=== PATIENT | male | born 2000 | race Caucasian/White ===

== ENCOUNTER 2021-08-24 10:14 | Outpatient (REF) | payer MEDICAID, SELFPAY ==
[2021-08-24 10:30] LABS: COVID-19 Test Positive (Negative)
== END 2021-08-24 10:15 | disposition home or self-care (01) ==
LOC: HO.LAB 10:14
PROVIDERS: Visit Provider Internal Medicine
DX: Z20.822 Contact with and (suspected) exposure to COVID-19 (principal)
CPT/HCPCS: 87635; C9803

== ENCOUNTER 2023-02-16 07:02 | Emergency (ER) | payer MEDICAID, SELFPAY ==
[2023-02-16 07:06] VITALS: BP 134/64; PULSE 97; RESP 16; TEMP 36.2; O2SAT 97; BMI 33.2
[2023-02-16 07:25] VITALS: BP 138/53; PULSE 78; RESP 18; TEMP 36.8; O2SAT 97
--- NOTE | 2023-02-16 07:28 | PC.NURSE ---
Alert and oriented. Arrived from home reporting 8 headache. States headache started yesterday when he woke up from a nap. States hx of headache but this is the worst one he has ever had. States saw a flash of bright light behind right eye yesterday and then pain continued to get worse. Denies sob or chest pain. States has some nausea and x1 vomiting. Denies sore throat, fever, or chills.
[2023-02-16] MEDS: 0.9 % Sodium Chloride 1,000 ML 999 ML IV (07:57)
--- NOTE | 2023-02-16 07:57 | ED.GENADULT ---
[facility] General Adult General Chief complaint: Headache Stated complaint: abd pain , migraine Time Seen by Provider: 02/16/23 07:24 Source: patient and other Mode of arrival: ambulatory History of Present Illness HPI narrative: 22-year-old male who presents with 2 days of headache and nausea that is related to underlying dental caries, also reports he has been drinking for the past few days, last drink was at 02:00, denies abdominal pain or sore throat. Related Data Allergies Allergy/AdvReac Type Severity Reaction Status Date / Time cashew nut [CASHEW NUT] Allergy Severe SWELLING Verified 02/16/23 07:06 pistachio nut Allergy Severe Swelling Verified 02/16/23 07:06 Review of Systems Review of Systems: Pertinent positives and negatives as stated in [facility] Past Medical History Source: nursing notes reviewed Social History Social History Alcohol intake: never Smoked in Last 30 Days: Yes Use of substances other than those prescribed or required for medical reasons: No Advance Directives: No Advance Directives Information Provided: Yes Physical Exam ED Vital Signs: Vital Signs - 24 hr 02/16/23 07:06 02/16/23 07:25 Temperature 97.1 F 98.3 F Pulse Rate 97 78 Respiratory Rate 16 18 Blood Pressure 134/64 138/53 L Pulse Oximetry 97 97 Oxygen Delivery Method Room Air BMI result Body Mass Index 33.2 VITAL SIGNS: Reviewed. GENERAL: Well developed, well nourished, in no acute distress. HEAD: Normocephalic/atraumatic EYES: PERRLA, EOMI EARS: Ext canals without abnormality, TMs non-bulging and non-erythematous NOSE: Nares patent bilateral OROPHARYNX: no oral lesions noted, posterior pharynx clear and non-erythematous without noted tonsillar enlargement/erythema/exudates NECK: Supple, no adenopathy LUNGS: Normal breath sounds. No adventitious sounds or accessory muscle use. SpO2<97> CARDIOVASCULAR: Regular rate and rhythm without noted murmurs ABDOMEN: Soft, non-tender, non-distended with bowel sounds. MUSCULOSKELETAL: No tenderness, deformities, or effusions noted on gross inspection. EXTREMITIES: No cyanosis, clubbing or edema. SKIN: Inspection of the skin reveals no rashes NEUROLOGIC: Alert and oriented x 4. Strength and sensation to light touch were grossly intact x 4. Medications Administered Discontinued Medications Generic Name Dose Route Start Last Admin Trade Name Frantz PRN Reason Stop Dose Admin Acetaminophen 975 mg 02/16/23 07:36 02/16/23 08:03 Acetaminophen 325 Mg Tablet PO 02/16/23 07:37 975 mg ONCE ONE Administration Sodium Chloride 1,000 mls @ 999 mls/hr 02/16/23 07:45 02/16/23 09:06 Ns IV 02/16/23 08:45 Infused .Q1H1M KETURAH Infusion Ketorolac Tromethamine 15 mg 02/16/23 07:35 02/16/23 08:03 Ketorolac Tromethamine 30 Mg/Ml Vial IVPUSH 02/16/23 07:36 15 mg ONCE ONE Administration Ondansetron HCl 4 mg 02/16/23 07:35 02/16/23 08:02 Ondansetron Hcl 4 Mg/2 Ml Vial IVPUSH 02/16/23 07:36 4 mg ONCE ONE Administration Medical Decision Making Medical Decision Making [facility] Narrative: 22-year-old male with history and clinical presentation, DDX: Alcohol intoxication, alcohol gastritis, dehydration, low clinical suspicion for any infectious etiologies such as cholecystitis/appendicitis/UTI. Patient received combination analgesics and 1 L of IV fluids, and Zofran. 0922: On re-evaluation patient reports feeling much improved, headache has completely resolved and patient has tolerated oral intake and states that his stomach feels much better. I reviewed all investigations and hematologic indices without evidence of infection, notably there is no leukocytosis or left shift, no thrombocytopenia there is a very mild normocytic anemia but I do not think is relevant to this patient's visit. Chemistry indices are grossly within normal limits and toxicology demonstrates BAL-179 consistent with alcohol intoxication. Patient is otherwise hemodynamically stable and will discharge with alcohol intoxication/mild alcohol gastritis and dehydration. Patient has a safe ride home. Differential Diagnosis Differential Diagnoses: The differential diagnosis associated with the presentation includes Please see the discussion Admission/Observation Consideration of admission/observation: Escalation of care including admission/observation considered Please see the discussion above Lab Data [facility] Lab Attestation statement: I reviewed the patient's lab results. Please see the discussion above 02/16/23 07:54 02/16/23 07:54 Labs: Lab Results 02/16/23 02/16/23 02/16/23 Range/Units 07:54 07:54 07:54 WBC 5.6 (4.8-10.8) X10*3/uL RBC 4.63 (4.60-5.80) X10*6/uL Hgb 13.4 L (14.0-18.0) g/dl Hct 39.4 L (42.0-52.0) % MCV 85.1 (80.0-98.0) fL MCH 28.9 (27.0-33.0) pg MCHC 34.0 (31.0-36.0) g/dl RDW 12.9 (11.0-16.0) % Plt Count 265 (160-400) X10*3/uL MPV 9.4 (9.4-12.4) fL Immature Gran % (Auto) 0.4 (0.0-0.4) % Neut % (Auto) 55.4 (45-73) % Lymph % (Auto) 35.0 (20-40) % [place] % (Auto) 6.5 (2-11) % Eos % (Auto) 2.2 (0-4) % Baso % (Auto) 0.5 (0-2) % Lymph # (Auto) 2.0 (1.2-4.9) X10*3/uL [place] # (Auto) 0.4 (0.1-1.2) X10*3/uL Eos # (Auto) 0.1 (0.0-0.4) X10*3/uL Baso # (Auto) 0.0 (0.0-0.2) X10*3/uL Abs Immat Gran (auto) 0.02 (0.00-0.03) X10*3/uL Absolute Neuts (auto) 3.1 (2.0-8.3) x10*3/uL Absolute Nucleated RBC 0.000 (0.0-0.012) X10*3/uL Nucleated RBC % (auto) 0.0 (0.0-0.2) /100WBC Sodium 142 (135-145) mmol/L Potassium 4.2 (3.3-5.1) mmol/L Chloride 109 H (96-108) mmol/L Carbon Dioxide 23 (22-29) mmol/L Anion Gap 14 (12-20) BUN 8 L (9-16) mg/dL Creatinine 0.85 (0.5-1.4) mg/dL Estim Creat Clear Calc 142.2 Estimated GFR > 60 Random Glucose 107 (60-115) mg/dL Calcium 9.5 (8.4-10.2) mg/dL Total Bilirubin 0.2 (0.0-1.0) mg/dL AST 24 (5-37) U/L ALT 36 (0-40) U/L Alkaline Phosphatase 55 (39-117) U/L Total Protein 7.8 (6.5-8.0) g/dL Albumin 4.7 (3.5-5.0) g/dL Lipase 14 (8-78) U/L Ethyl Alcohol 176 mg/dL Critical Care Time Critical Care Time Critical Care Time: Yes Total Critical Care Time: 30 Attestation: I personally attest to this time spent taking care of the patient. Discharge Plan Discharge Clinical Impression: Alcohol intoxication, Alcoholic gastritis, Dehydration Patient Disposition: Home, Self-Care Instructions: Gastritis (ED), Dehydration (ED), Diet for Stomach Ulcers and Gastritis (ED), Alcohol Intoxication (ED) Additional Instructions: 1. Increase water intake over the next 24 hours. 2. Follow-up with your primary care provider. Return to the ER for any worsening symptoms. Referrals: [facility] [Primary Care Provider] -
[2023-02-16 08:00] LABS: MANUAL DIFF FLAG NO
[2023-02-16 08:01] LABS: Basophils Percent Auto 0.5 % (0-2); Eosinophils Absolute Auto 0.1 X10*3/uL (0.0-0.4); Eosinophils Percent Auto 2.2 % (0-4); Hematocrit 39.4 % (42.0-52.0); Hemoglobin 13.4 g/dl (14.0-18.0); Imm Gran Abs Auto 0.02 X10*3/uL (0.00-0.03); Imm Gran Pct Auto 0.4 % (0.0-0.4); Mean Corpuscular Hemoglobin 28.9 pg (27.0-33.0); Mean Corpuscular Volume 85.1 fL (80.0-98.0); Mean Platelet Volume 9.4 fL (9.4-12.4); Monocytes Absolute Auto 0.4 X10*3/uL (0.1-1.2); Monocytes Percent Auto 6.5 % (2-11); Neutrophils Absolute Auto 3.1 x10*3/uL (2.0-8.3); Neutrophils Percent Auto 55.4 % (45-73); Platelet Count 265 X10*3/uL (160-400); Red Blood Count 4.63 X10*6/uL (4.60-5.80); Red Cell Distribution Width 12.9 % (11.0-16.0); White Blood Count 5.6 X10*3/uL (4.8-10.8)
[2023-02-16] MEDS: ondansetron HCL 4 MG/2 ML VIAL IVPUSH (08:02)
[2023-02-16] MEDS: Acetaminophen 325 MG TABLET 975 MG PO (08:03)
[2023-02-16] MEDS: Ketorolac Tromethamine 30 MG/ML VIAL 15 MG IVPUSH (08:03)
[2023-02-16 08:13] LABS: Ethanol 176 mg/dL
[2023-02-16 08:15] LABS: Alanine Aminotransferase 36 U/L (0-40); Albumin Level 4.7 g/dL (3.5-5.0); Alkaline Phosphatase 55 U/L (39-117); Anion Gap 14 (12-20); Aspartate Amino Transferase 24 U/L (5-37); Bilirubin Total 0.2 mg/dL (0.0-1.0); Blood Urea Nitrogen 8 mg/dL (9-16); Calcium 9.5 mg/dL (8.4-10.2); Carbon Dioxide 23 mmol/L (22-29); Chloride 109 mmol/L (96-108); Creatinine Clr Calc Pharmacy 142.2; Estimated Glomerular Filt Rate > 60; Glucose Random 107 mg/dL (60-115); Potassium 4.2 mmol/L (3.3-5.1); Sodium 142 mmol/L (135-145); Total Protein 7.8 g/dL (6.5-8.0)
[2023-02-16 08:37] LABS: Lipase 14 U/L (8-78)
--- NOTE | 2023-02-16 09:06 | PC.NURSE ---
Alert and oriented. reports pain and nausea has improved. Provided with fluids and crackers.
== END 2023-02-16 09:43 | disposition home or self-care (01) ==
PROVIDERS: Emergency Provider Student in an Organized Health Care Education/Training Program
DX: K29.20 Alcoholic gastritis without bleeding (principal); F10.920 Alcohol use, unspecified with intoxication, uncomplicated; Y90.6 Blood alcohol level of 120-199 mg/100 ml; E86.0 Dehydration
CPT/HCPCS: 36415; 80053; 80307; 83690; 85025; 96361; 96374; 96375; 99284; J1885; J2405

== ENCOUNTER 2023-06-22 07:48 | Emergency (ER) | payer MEDICAID, SELFPAY ==
--- NOTE | ~2023-06-22 | XR_ITS ---
EXAMINATION: XR ANKLE, LEFT CLINICAL INFORMATION: Pain COMPARISON: None available. TECHNIQUE: AP, lateral, and mortise views of the left ankle. FINDINGS: No fracture. Alignment is anatomic. No erosions. Joint spaces are maintained. Soft tissues are normal. XR/XR ankle LT 2V IMPRESSION: No radiographic evidence of acute fracture or dislocation.
[2023-06-22 07:57] VITALS: BP 108/64; PULSE 65; RESP 16; TEMP 37.1; O2SAT 98; BMI 33.3
--- NOTE | 2023-06-22 08:24 | ED.LOWEXIN ---
HPI - Extremity Injury (Lower) General Chief Complaint: Extremity Injury, Lower Stated Complaint: ankle injury Time Seen by Provider: 06/22/23 08:04 Source: patient Mode of arrival: ambulatory Limitations: no limitations History of Present Illness HPI Narrative: 23-year-old male previously healthy here with complaints of left ankle pain. Patient reports yesterday he was jumping and he twisted the left ankle causing an inversion injury. Since then he has pain with weight-bearing and swelling. No previous ankle injury. No associated weakness, numbness or tingling of extremity. Related Data Allergies Allergy/AdvReac Type Severity Reaction Status Date / Time cashew nut [CASHEW NUT] Allergy Severe SWELLING Verified 02/16/23 07:06 pistachio nut Allergy Severe Swelling Verified 02/16/23 07:06 Review of Systems Review of Systems: Yes all other systems are reviewed and are negative Constitutional: Constitutional: Reports no additional constitutional complaints, Denies body ache(s), Denies chills, Denies fever(s), Denies headache(s) and Denies weakness Eyes: Eyes: Reports no additional eye complaints and Denies change in vision ENT: Reports system reviewed and no additional complaints, except as documented, Denies dizziness, Denies headache(s), Denies nasal congestion, Denies nasal discharge and Denies neck pain Cardiovascular: Cardiovascular: Reports no additional cardiovascular complaints, Denies chest pain, Denies leg edema and Denies dyspnea Respiratory: Respiratory: Reports no additional respiratory complaints, Denies cough and Denies dyspnea Gastrointestinal: Gastrointestinal: Reports no additional gastrointestinal complaints, Denies abdominal pain, Denies diarrhea, Denies nausea and Denies vomiting Genitourinary: Genitourinary: Denies urinary incontinence Musculoskeletal: Musculoskeletal: Reports no additional musculoskeletal complaints, Denies back pain, Reports arthralgias, Reports joint swelling, Denies limited range of motion, Denies neck pain, Denies numbness and Denies tingling Integumentary/Breasts: Skin/Breast: Reports system reviewed and no additional complaints, except as docu and Denies rash Neurologic: Reports system reviewed and no additional complaints, except as documented, Denies Abnormal speech present, Denies dizziness, Denies headache(s), Denies numbness, Denies tingling and Denies weakness PMFSH Past Medical History Attestation statement: The following information was validated with the patient. Source: old records reviewed and nursing notes reviewed Social History Social History Alcohol intake: never Advance Directives: No Advance Directives Information Provided: No Physical Exam Vital Signs: Vital Signs: Last Vital Signs Temp 98.8 F 06/22/23 07:57 Pulse 65 06/22/23 07:57 Resp 16 06/22/23 07:57 BP 108/64 06/22/23 07:57 Pulse Ox 98 06/22/23 07:57 O2 Del Method Room Air 06/22/23 07:57 BMI result Body Mass Index 33.3 Const: General: cooperative, healthy appearing, comfortable and no acute distress Orientation/consciousness: patient oriented x3 Limitations: no limitations HEENT: Head: Yes normal to inspection Ears: hearing grossly normal bilaterally General nose exam: Normal external nose present Face and sinus: Yes normal facial exam Mouth: Normal oral and palatal mucosa present Throat: Yes posterior oropharynx normal Eyes: General: appearance normal, both eyes and all related structures Pupils: Equal, round and reactive pupils present Neck: Neck: Yes normal visual inspection Chest: Chest palpation & inspection: normal inspection of the chest Resp: Effort & Inspection: normal respiratory effort Auscultation: clear to auscultation bilaterally Cardio: Rate: regular rate Rhythm: regular rhythm Peripheral pulses: Peripheral pulses 2+ throughout GI: Inspection: Yes normal to inspection Palpation (GI): Soft to palpation and nontender Auscultation: normal bowel sounds Back/Spine/Pelvis: Thoracic/Lumbar Spine: thoracic and lumbar spine normal to inspection Skin: General skin exam: no rashes or lesions noted Neuro: General: patient oriented x3, no focal motor deficits and normal sensation to monofilament Cranial nerves: Yes Equal, round and reactive pupils present Cognition (Neuro): normal cognition Speech: No Abnormal speech present Gait exam (Neuro): Normal gait present Motor exam (neuro): 5/5 motor strength present throughout Extrem: Other: There is tenderness to palpation over the left lateral ankle. There is no appreciable swelling or deformity. There is full range of motion both actively and passively of the ankle. There is no tenderness over the foot. There is no tenderness over the posterior ankle. Negative Gao test. Normal DP and PT pulses. Normal sensation. General: Yes normal to inspection Course Course Course Narrative: X-ray show no fracture. Likely sprain. Patient will be given Jameson wrap and crutches for home. Reviewed rice. Reviewed worrisome signs and symptoms of when to return to the emergency room. Comfortable plan for discharge home Medical Decision Making Medical Decision Making MDM Narrative: 23-year-old male previously healthy here with complaints of left ankle pain.? Patient reports yesterday he was jumping and he twisted the left ankle causing an inversion injury.? Since then he has pain with weight-bearing and swelling.? No previous ankle injury.? No associated weakness, numbness or tingling of extremity. There is tenderness to palpation over the left lateral ankle.? There is no appreciable swelling or deformity.? There is full range of motion both actively and passively of the ankle.? There is no tenderness over the foot.? There is no tenderness over the posterior ankle.? Negative Gao test.? Normal DP and PT pulses.? Normal sensation. Will check x-rays Differential Diagnosis Differential Diagnoses: The differential diagnosis associated with the presentation includes Sprain, strain Low concern for fracture, dislocation, vascular injury Admission/Observation Consideration of admission/observation: Escalation of care including admission/observation considered Low concern for complicated fracture, dislocation or vascular injury requiring advanced imaging or orthopedic emergent consultation Independent Interpretation I performed an independent interpretation of an: Plain X-Ray Interpretation: I independently reviewed the x-ray and agree with the radiology report Radiology Impression Discussion of test interpretation with radiology: I have reviewed the radiologist's reading. Radiologist Impression: [address] [address] XRay Report? Signed Patient: Michael Montes MR#: [id number] : 2000 Acct:[id number] Age/Sex: 23 / M ADM Date: 06/22/23 Loc: HO.ED Attending Dr:? Ordering Physician: Bhargavi Henriquez DO Date of Service: 06/22/23 Procedure(s): XR ankle LT 2V Accession Number(s): [id number] cc: Bhargavi Henriquez DO; KRISTINA ROSA NP~ EXAMINATION:? XR ANKLE, LEFT CLINICAL INFORMATION:? Pain?? COMPARISON:? None available.?? TECHNIQUE:? AP, lateral, and mortise views of the left ankle. FINDINGS:? No fracture. Alignment is anatomic. No erosions. Joint spaces are maintained. Soft tissues are normal.?? XR/XR ankle LT 2V IMPRESSION: No radiographic evidence of acute fracture or dislocation. Independent Historian Clinical information obtained from an independent historian. History obtained from or confirmed by: Friend Tests considered The following testing was considered but not selected: No evidence of vascular injury requiring additional imaging Procedures Orthopedic Splinting/Casting Injury #1: Side: left Lower Extremity Injury Location: ankle Lower Extremity Immobilizer: Jameson wrap Other Orthopedic Equipment: crutches Discharge Plan Discharge Clinical Impression: Ankle sprain and strain Patient Disposition: Home, Self-Care Instructions: Ankle Sprain (ED) Additional Instructions: Rest, ice, elevate the extremity. Take Motrin for pain as needed Use Jameson wrap and crutches for comfort Referrals: Kristina Rosa NP [Primary Care Provider] - 1 week Stand Alone Forms: Work/School Release
== END 2023-06-22 09:33 | disposition home or self-care (01) ==
PROVIDERS: Emergency Provider Emergency Medicine; PCP Nurse Practitioner Primary Care
DX: S93.402A Sprain of unspecified ligament of left ankle, initial encounter (principal); S96.912A Strain of unspecified muscle and tendon at ankle and foot level, left foot, initial encounter; X50.1XXA Overexertion from prolonged static or awkward postures, initial encounter; Y93.89 Activity, other specified; Y92.9 Unspecified place or not applicable; Y99.9 Unspecified external cause status
CPT/HCPCS: 73600; 99282; 99283